=== PATIENT | male | born 1995 | race Two or more races ===

== ENCOUNTER 2024-09-06 04:54 | Emergency (ER) | payer MEDICAID, OTHER ==
[~2024-09-06] VITALS: Ht 175.3 cm; Wt 78.6 kg
[2024-09-06 06:52] VITALS: BP 133/79; TEMP 97.9
[2024-09-06 06:53] VITALS: PULSE 103; RESP 18; O2SAT 97
[2024-09-06 07:37] LABS: Chloride 102 mmol/L (98-107); Potassium 3.6 mmol/L (3.5-5.1); Sodium 138 mmol/L (136-145)
[2024-09-06 07:38] LABS: Anion Gap 12 (5-15); Calcium 9.5 mg/dL (8.7-10.4); Carbon Dioxide 24 mmol/L (20-31)
[2024-09-06 07:39] LABS: Basophils # (auto) 0 10 ^3/uL (0-0.2); Basophils % (auto) 0.4 % (0.0-2.0); Eosinophils # (auto) 0 10 ^3/uL (0-0.8); Hematocrit 45.6 % (41.0-53.0); Hemoglobin 15.5 g/dL (13.5-17.5); Lymphocytes # (auto) 1.5 10 ^3/uL (0.4-5.4); Lymphocytes % (auto) 32.9 % (10.0-50.0); Mean Corpuscular Hemoglobin 29.7 pg (28.0-32.0); Mean Corpuscular Volume 87.5 fL (80.0-100.0); Monocytes # (auto) 0.6 10 ^3/uL (0-1.3); Monocytes % (auto) 11.9 % (0.0-12.0); Neutrophils # (auto) 2.5 10 ^3/uL (1.6-8.6); Neutrophils % (auto) 53.8 % (37.0-80.0); Nucleated Red Blood Cells % 0.3 %; Platelet Count (auto) 237 10^3/uL (140-450); Red Cell Distribution Width 15.2 % (11.8-14.3); White Blood Cell 4.7 10^3/uL (4.4-10.8)
[2024-09-06 07:43] LABS: BUN/Creatinine Ratio 10.6 (10.0-20.0); Blood Urea Nitrogen 11 mg/dL (9-23); Glucose 137 mg/dL (74-106)
[2024-09-06] MEDS: HYDROcodone-ACET 5/325MG TAB PO ONE (07:45)
[2024-09-06] MEDS ORDERED: NAPR-746 PO (08:14)
[2024-09-08 10:42] LABS: Hepatitis B Surface Antibody Negative (Negative)
[2024-09-08 10:51] LABS: Hepatitis B Surface Antigen Negative (Negative)
== END 2024-09-06 08:15 | disposition home or self-care (01) ==
LOC: ER 04:54
DX: S02.2XXA Fracture of nasal bones, initial encounter for closed fracture (principal); M79.18 Myalgia, other site; R06.02 Shortness of breath; Z79.899 Other long term (current) drug therapy; Y08.89XA Assault by other specified means, initial encounter; Y93.89 Activity, other specified; Y92.89 Other specified places as the place of occurrence of the external cause; Y99.8 Other external cause status
CPT/HCPCS: 36415; 70450; 70486; 80048; 85025; 86703; 86706; 86803; 87340; 93005